=== PATIENT | male | born 2000 | race Caucasian/White ===

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

== ENCOUNTER 2024-06-06 11:17 | Emergency (ER) | payer BC, OTHER ==
[~2024-06-06] VITALS: Ht 182.9 cm; Wt 82.1 kg
[2024-06-06 12:35] VITALS: BP 135/80; TEMP 98.4; O2SAT 100
== END 2024-06-06 12:35 | disposition home or self-care (01) ==
LOC: ER 11:31
DX: F12.10 Cannabis abuse, uncomplicated (principal); F32.A Depression, unspecified

== ENCOUNTER 2025-07-12 01:56 | Emergency (ER) | payer OTHER ==
[~2025-07-12] VITALS: Ht 182.9 cm; Wt 81.6 kg
[2025-07-12 02:08] VITALS: TEMP 98.9
[2025-07-12 02:24] LABS: PLATELET COUNT (AUTO) 308 K/uL (150-450); RED BLOOD CELL COUNT(AUTO) 5.01 MIL/uL (4.5-6.0); RED CELL DISTRIBUTION WIDTH 13.9 % (11.5-15.0); WHITE BLOOD COUNT (AUTO) 9.2 K/uL (4.3-11.0)
[2025-07-12 02:28] LABS: APPEARANCE,URINE CLEAR (CLEAR); BLOOD, URINE TRACE-INTA Ery/uL (NEGATIVE); LEUKOCYTE ESTERASE ,URINE NEGATIVE (NEGATIVE); NITRITE, URINE NEGATIVE (NEGATIVE); UGLUCOSE NEGATIVE (NEGATIVE)
[2025-07-12 02:29] VITALS: BP 116/82; O2SAT 98
[2025-07-12] MEDS ORDERED: LEVETIRACETAM (500MG) 500 MG/5 ML VIAL IV ONE (02:31)
[2025-07-12 02:32] LABS: CALCIUM, SERUM 9.6 mg/dL (8.5-10.1); CREATININE 1.3 mg/dL (0.6-1.3); SODIUM SERUM 141 mmol/L (136-145); UREA NITROGEN, BLOOD 17 mg/dL (7-18)
[2025-07-12] MEDS: LEVETIRACETAM (500MG) 500 MG in IV NS 0.9% 100 ML IV ONE (02:34)
[2025-07-12] MEDS: IV NS 0.9% 1,000 ML BAG IV ONE (02:34)
[2025-07-12 02:35] LABS: ADD URINE CULTURE NO; SQUAMOUS EPITHELIAL CELL,UR Rare /HPF (None Seen)
[2025-07-12 02:42] LABS: INR 1.08 (0.91-1.10)
[2025-07-12 02:43] LABS: AMPHETAMINE, URINE NEGATIVE (NEGATIVE); ASPARTATE AMINOTRANSFERASE 18 U/L (15-37); BARBITURATE, URINE NEGATIVE (NEGATIVE); BENZODIAZEPINE, URINE NEGATIVE (NEGATIVE); COCCAINE, URINE NEGATIVE (NEGATIVE); OPIATE, URINE NEGATIVE (NEGATIVE); TOTAL PROTEIN, SERUM 7.8 g/dL (6.4-8.2)
[2025-07-12 02:53] LABS: CANNABINOID, URINE POSITIVE (NEGATIVE)
[2025-07-12 02:54] LABS: ALCOHOL, BLOOD < 3 mg/dL (0-10)
[2025-07-12] MEDS ORDERED: LEVE500T19 PO (03:11)
== END 2025-07-12 03:45 | disposition home or self-care (01) ==
LOC: ER 01:57
DX: R56.9 Unspecified convulsions (principal); F32.A Depression, unspecified; Z86.2 Personal history of diseases of the blood and blood-forming organs and certain disorders involving the immune mechanism
CPT/HCPCS: 99285; 96365; 93005; 70450; 85025; 80048; 80076; 81001; 36415; 85730; 82962; 80320; 80307; J7030; J1953 ×2; G0480

== ENCOUNTER 2025-10-22 17:16 | Emergency (ER) | payer OTHER ==
[~2025-10-22] VITALS: Ht 167.6 cm; Wt 79.4 kg
[~2025-10-22 17:16] MED LIST: LEVE500T19 PO
[2025-10-22 17:22] VITALS: BP 124/79; TEMP 98.2
[2025-10-22] MEDS ORDERED: BACI/NEOM/POLY B OINT PKT 1 UDPKT PACKET ONE (17:49)
[2025-10-22] MEDS ORDERED: TDAP [DIPH/PERTUSSIS/TET] 0.5 ML VIAL IM ONE (18:09)
[2025-10-22] MEDS: TDAP [DIPH/PERTUSSIS/TET] 0.5 ML VIAL IM ONE (18:10)
[2025-10-22] MEDS: BACI/NEOM/POLY B OINT PKT 1 UDPKT PACKET TP ONE (18:13)
[2025-10-22 18:14] VITALS: O2SAT 100
== END 2025-10-22 18:15 | disposition home or self-care (01) ==
LOC: ER 17:21
DX: S61.214A Laceration without foreign body of right ring finger without damage to nail, initial encounter (principal); F32.A Depression, unspecified; W18.49XA Other slipping, tripping and stumbling without falling, initial encounter; Y93.89 Activity, other specified; Y92.89 Other specified places as the place of occurrence of the external cause; Y99.8 Other external cause status
CPT/HCPCS: 90715